=== PATIENT | male | born 1960 | race African-American/Black ===

== ENCOUNTER 2020-05-02 19:40 | Emergency (ER) | payer MEDICARE, OTHER ==
[~2020-05-02] VITALS: Ht 172.7 cm; Wt 91.6 kg
--- NOTE | 2020-05-02 20:01 | NUR ---
XRAY AT BEDSIDE
--- NOTE | 2020-05-02 20:20 | NUR ---
AUTO CLUB TRAVEL COUNSELOR AT BEDSIDE FOR BLOOD DRAW
[2020-05-02 20:39] LABS: BASOPHILS # (AUTO) 0.1 /CMM (0.0-0.2); BASOPHILS % (AUTO) 0.9 % (0.0-2.0); EOSINOPHILS % (AUTO) 3.1 % (0.0-6.0); HEMATOCRIT 44 % (39-51); HEMOGLOBIN 14.2 g/dL (13.5-17.5); LYMPHOCYTES % (AUTO) 13.8 % (20.0-44.0); MEAN CORPUSCULAR HGB CONC 32 g/dl (31.0-36.0); MEAN CORPUSCULAR VOLUME 94 fL (80-96); MONOCYTES # (AUTO) 0.8 /CMM (0.1-1.30); MONOCYTES % (AUTO) 10.6 % (2.0-12.0); NEUTROPHILS # (AUTO) 5.1 /CMM (1.8-8.9); NEUTROPHILS % (AUTO) 71.6 % (43.0-81.0); PLATELET COUNT (AUTO) 197 /CMM (150-450); RED BLOOD CELL COUNT(AUTO) 4.68 MIL/uL (4.5-6.0); WHITE BLOOD COUNT (AUTO) 7.2 K/uL (4.3-11.0)
[2020-05-02 20:49] LABS: CALCIUM, SERUM 8.2 mg/dL (8.5-10.1); CARBON DIOXIDE 28 mmol/L (21-32); CHLORIDE 100 mmol/L (98-107); GLUCOSE 138 mg/dL (74-106); POTASSIUM 5.3 mmol/L (3.5-5.1); SODIUM SERUM 139 mmol/L (136-145); UREA NITROGEN, BLOOD 43 mg/dL (7-18)
[2020-05-02 20:52] LABS: CREATININE 10.2 mg/dL (0.6-1.3)
--- NOTE | 2020-05-02 20:53 | NUR ---
CRE 10.2, AWARE
[2020-05-02 21:41] VITALS: BP 128/76
== END 2020-05-02 21:41 | disposition home or self-care (01) ==
LOC: ER 19:42
DX: R55 Syncope and collapse (principal); N18.6 End stage renal disease; E87.5 Hyperkalemia; Z99.2 Dependence on renal dialysis
CPT/HCPCS: 36415; 71045-TC; 80048-TC; 84484-TC; 85025-TC; 85730-TC

== ENCOUNTER 2020-09-14 12:59 | Inpatient (IN) | payer MEDICARE, OTHER ==
[~2020-09-14] VITALS: Ht 172.7 cm; Wt 91.8 kg
[2020-09-14] MEDS ORDERED: MORPHINE SULFATE INJ 4 MG/ML DISP.SYRIN ONE (14:28)
[2020-09-14] MEDS ORDERED: ONDANSETRON HCL/PF 4 MG/2 ML VIAL ONE (14:28)
[2020-09-14 14:56] LABS: BASOPHILS # (AUTO) 0.2 /CMM (0.0-0.2); BASOPHILS % (AUTO) 2.4 % (0.0-2.0); EOSINOPHILS % (AUTO) 5.2 % (0.0-6.0); HEMATOCRIT 37 % (39-51); HEMOGLOBIN 11.8 g/dL (13.5-17.5); LYMPHOCYTES # (AUTO) 1.7 /CMM (0.8-4.8); LYMPHOCYTES % (AUTO) 16.7 % (20.0-44.0); MEAN CORPUSCULAR HGB CONC 32 g/dl (31.0-36.0); MEAN CORPUSCULAR VOLUME 96 fL (80-96); MONOCYTES # (AUTO) 0.9 /CMM (0.1-1.30); MONOCYTES % (AUTO) 9.3 % (2.0-12.0); NEUTROPHILS # (AUTO) 6.8 /CMM (1.8-8.9); NEUTROPHILS % (AUTO) 66.4 % (43.0-81.0); PLATELET COUNT (AUTO) 206 /CMM (150-450); RED BLOOD CELL COUNT(AUTO) 3.88 MIL/uL (4.5-6.0); WHITE BLOOD COUNT (AUTO) 10.2 K/uL (4.3-11.0)
[2020-09-14] MEDS ORDERED: CARV25TA2 PO (14:57)
[2020-09-14] MEDS ORDERED: FURO-145 PO (14:57)
[2020-09-14] MEDS ORDERED: SEVE800T8 PO (14:57)
[2020-09-14] MEDS ORDERED: CALC300T4 PO (14:57)
[2020-09-14] MEDS ORDERED: ASPI-1169 PO (14:57)
[2020-09-14] MEDS ORDERED: ONDANSETRON HCL/PF 4 MG/2 ML VIAL IVP ONE (15:00)
[2020-09-14] MEDS ORDERED: MORPHINE SULFATE INJ 10 MG/ML DISP.SYRIN IM ONE (15:00)
[2020-09-14] MEDS ORDERED: MORPHINE SULFATE INJ 2 MG/ML DISP.SYRIN IV ONE (15:00)
[2020-09-14] MEDS ORDERED: ONDANSETRON HCL/PF 4 MG/2 ML VIAL IM ONE (15:00)
--- NOTE | 2020-09-14 15:00 | NUR ---
pt sent to ct chest xray done
[2020-09-14 15:06] LABS: ALBUMIN 3.4 g/dL (3.4-5.0); BILIRUBIN,DIRECT 0.1 mg/dL (0.0-0.2); BILIRUBIN,TOTAL 0.5 mg/dL (0.2-1.0); CALCIUM, SERUM 7.1 mg/dL (8.5-10.1); TOTAL PROTEIN, SERUM 7.6 g/dL (6.4-8.2)
[2020-09-14 15:10] LABS: CREATININE 14.4 mg/dL (0.6-1.3); POTASSIUM 6.3 mmol/L (3.5-5.1)
--- NOTE | 2020-09-14 15:15 | NUR ---
iv started left wrist 22g labs drawn sent to lab AWAITING EVALUATION BY ER PROVIDER. pt stated feeling better
--- NOTE | 2020-09-14 15:15 | NUR ---
pt reac'd to er via ems c/o rt side abd pain 10/ crying rt arm doyleuta need his dialysis today iv started left wrist 22g
--- NOTE | 2020-09-14 15:19 | NUR ---
meds given left detoid im and rt thighAWAITING EVALUATION BY ER PROVIDER.
[2020-09-14] MEDS ORDERED: ALBUTEROL FS 2.5 MG/3 ML VIAL.NEB NEB ONE (15:30)
[2020-09-14] MEDS ORDERED: SODIUM POLYSTYRENE SULFONATE 15 G/60 ML BOTTLE PO ONE (15:30)
[2020-09-14] MEDS ORDERED: SODIUM BICARBONATE SYR 50 MEQ/50 ML DISP.SYRIN IV ONE (15:30)
[2020-09-14] MEDS ORDERED: SODIUM BICARBONATE SYR 50 MEQ/50 ML DISP.SYRIN ONE (15:31)
[2020-09-14] MEDS ORDERED: SODIUM POLYSTYRENE SULFONATE 15 G/60 ML BOTTLE ONE (15:31)
--- NOTE | 2020-09-14 18:50 | NUR ---
rt calledd for bt and covid 19 negative
--- NOTE | 2020-09-14 19:45 | NUR ---
RT CALLED FOR BREATHING TREATMENT.
[2020-09-14] MEDS ORDERED: ZOLPIDEM TARTRATE 5 MG TABLET PO PRN (20:00)
[2020-09-14] MEDS ORDERED: ONDANSETRON HCL/PF 4 MG/2 ML VIAL IVP PRN (20:00)
[2020-09-14] MEDS ORDERED: ACETAMINOPHEN 325 MG TABLET PO PRN (20:00)
[2020-09-14] MEDS ORDERED: Z GUARD REMEDY 2 OZ OINT TP PRN (20:00)
--- NOTE | 2020-09-14 20:44 | NUR ---
ORDERS ARE NOW ACTIVE, CALLED NURSING SUPERVISOR [employer] WITH ORDERS FOR MEDICATIONS THAT ARE NOT AVAILABLE IN THE EMERGENCY DEPARTMENT.
[2020-09-14] MEDS: SEVELAMER CARBONATE 800 MG POWD.PACK GT SCH (21:23)
[2020-09-14] MEDS ORDERED: CARVEDILOL 12.5 MG TABLET ONE (21:23)
[2020-09-14] MEDS ORDERED: HEPARIN SODIUM, PORCINE 5000 UNITS/1 ML VIAL ONE (21:23)
[2020-09-14] MEDS: FUROSEMIDE 20 MG TABLET PO SCH (21:23)
[2020-09-14] MEDS: CARVEDILOL 6.25 MG TABLET PO SCH (21:23)
[2020-09-14] MEDS ORDERED: FUROSEMIDE 20 MG/2 ML VIAL ONE (21:51)
[2020-09-14] MEDS ORDERED: SEVELAMER CARBONATE 800 MG POWD.PACK ONE (21:52)
[2020-09-14] MEDS: HEPARIN SODIUM, PORCINE 5000 UNITS/1 ML VIAL SQ SCH (21:54)
[2020-09-14] MEDS ORDERED: FUROSEMIDE 20 MG TABLET ONE (22:01)
[2020-09-14 22:44] LABS: CALCIUM, SERUM 6.5 mg/dL (8.5-10.1); POTASSIUM 5.9 mmol/L (3.5-5.1)
[2020-09-14 22:45] LABS: CREATININE 14.8 mg/dL (0.6-1.3)
[2020-09-15] MEDS ORDERED: FUROSEMIDE 40 MG/4 ML VIAL ONE (02:45)
[2020-09-15] MEDS ORDERED: FUROSEMIDE 20 MG/2 ML VIAL IV SCH ×2 (03:00)
[2020-09-15] MEDS ORDERED: ONDANSETRON HCL/PF 4 MG/2 ML VIAL ONE (03:04)
[2020-09-15] MEDS ORDERED: MORPHINE SULFATE INJ 2 MG/ML DISP.SYRIN ONE (03:05)
[2020-09-15] MEDS: MORPHINE SULFATE INJ 2 MG/ML DISP.SYRIN IV PRN ×2 (03:07→08:19)
[2020-09-15] MEDS ORDERED: NITROGLYCERIN 0.4 MG/TAB BOTTLE ONE (03:47)
--- NOTE | 2020-09-15 03:50 | NUR ---
MOISE BALES DATA COORDINATOR NOTIFIED OF PATIENT'S 11/27 LEFT SIDED CHEST PAIN. DATA COORDINATOR ORDERED FOR NITRO 0.4 SUBLINGUAL 1 TAB. WILL MEDICATE ORDER
--- NOTE | 2020-09-15 03:54 | NUR ---
PATIENT MEDICATED ORDERED.
--- NOTE | 2020-09-15 06:04 | NUR ---
REPORT GIVEN TO RIVKA LOPEZ FOR CONTINUITY OF CARE.
--- NOTE | 2020-09-15 07:01 | NUR ---
PATIENT UP TO ASSIGNED ROOM FOR CONTINUITY OF CARE
[2020-09-15 08:00] VITALS: BP 166/96
[2020-09-15] MEDS: SEVELAMER CARBONATE 800 MG POWD.PACK GT SCH ×3 (08:15→18:18)
[2020-09-15] MEDS: FUROSEMIDE 20 MG TABLET PO SCH ×2 (08:16→18:18)
[2020-09-15] MEDS: CARVEDILOL 6.25 MG TABLET PO SCH ×2 (08:17→18:18)
[2020-09-15] MEDS: CALCIUM CARBONATE 500 MG TAB.CHEW PO SCH (08:17)
[2020-09-15] MEDS: ASPIRIN 81 MG TAB.CHEW PO SCH (08:17)
[2020-09-15] MEDS: HEPARIN SODIUM, PORCINE 5000 UNITS/1 ML VIAL SQ SCH ×2 (08:18→20:28)
[2020-09-15 08:21] LABS: BASOPHILS # (AUTO) 0.1 /CMM (0.0-0.2); BASOPHILS % (AUTO) 0.8 % (0.0-2.0); EOSINOPHILS % (AUTO) 4.5 % (0.0-6.0); HEMATOCRIT 33 % (39-51); HEMOGLOBIN 10.8 g/dL (13.5-17.5); LYMPHOCYTES # (AUTO) 1.3 /CMM (0.8-4.8); LYMPHOCYTES % (AUTO) 12.9 % (20.0-44.0); MEAN CORPUSCULAR HGB CONC 33 g/dl (31.0-36.0); MEAN CORPUSCULAR VOLUME 93 fL (80-96); MONOCYTES # (AUTO) 1.2 /CMM (0.1-1.30); NEUTROPHILS # (AUTO) 6.9 /CMM (1.8-8.9); NEUTROPHILS % (AUTO) 69.8 % (43.0-81.0); PLATELET COUNT (AUTO) 195 /CMM (150-450); RED BLOOD CELL COUNT(AUTO) 3.55 MIL/uL (4.5-6.0); WHITE BLOOD COUNT (AUTO) 9.8 K/uL (4.3-11.0)
[2020-09-15 11:23] LABS: CALCIUM, SERUM 6.8 mg/dL (8.5-10.1); MAGNESIUM 2.8 mg/dL (1.8-2.4); PHOSPHORUS 6.3 mg/dL (2.5-4.9)
[2020-09-15 11:24] LABS: CREATININE 15.7 mg/dL (0.6-1.3)
--- NOTE | 2020-09-15 11:30 | NUR ---
RN NOTES HD FINISH WITH [employer] TEST TECHNICIAN AT BEDSIDE, 3 LITERS OUTPUT, WILL CONTINUE TO MONITOR PATIENT.
[2020-09-15] MEDS ORDERED: NITROGLYCERIN 0.4 MG/TAB BOTTLE SL PRN (15:00)
[2020-09-15 16:00] VITALS: BP 148/85
--- NOTE | 2020-09-15 19:45 | NUR ---
CARE TRANSPORT NURSE OPENING NOTES RECEIVED PATIENT IN BED ALERT AND ORIENTED X 3. VERBALLY RESPONSIVE AND ABLE TO FOLLOW DIRECTIONS. BREATHING REGULAR AND UNLABORED ON OXYGEN AT 2L/MIN VIA NASAL CANNULA. LEFT FOREARM G20 IV LINE INTACT AND PATENT, FLUSHING WELL. MAINTAINED ON CARDIAC MONITORING. RIGHT AV FISTULA POSITIVE FOR BRUIT AND THRILL, NO ACTIVE BLEEDING NOTED. DENIES PAIN/DISCOMFORT AT THIS TIME. BED LOW AND LOCKED ON SEMI FOWLERS POSITION. CALL LIGHT IN REACH. WILL CONTINUE TO MONITOR.
--- NOTE | 2020-09-15 19:45 | NUR ---
RN CLOSING NOTES PATIENT IN BED RESTING COMFORTABLY, MET ALL OF PATIENT'S NEEDS. ALERT AND ORIENTED X 3. ON NASAL CANNULA, 2 LITERS WITH NO RESPIRATORY DISTRESS PRESENT WITH EVEN NON-LABORED BREATHING. PATIENT ON PROJ MGR, SINUS RHYTHM. IV ACCESS INTACT AND PATENT. PATIENT PRESENTS WITH NO SIGNS OF PAIN OR DISCOMFORT. SAFETY PRECAUTIONS IMPLEMENTED WITH BED LOCKED, BILATERAL SIDE RAILS UP, AND CALL LIGHT WITH IN EASY REACH. WILL ENDORSE PLAN OF CARE TO UPCOMING RN.
[2020-09-15 20:00] VITALS: BP 171/89
[2020-09-15 21:00] VITALS: BP 146/78
[2020-09-15] MEDS: CLONIDINE HCL 0.1 MG TABLET PO PRN (21:13)
[2020-09-16] VITALS: BP 157/92
[2020-09-16] MEDS: HYDROCODONE/APAP 5/325MG TABLET PO PRN ×2 (00:35→09:04)
--- NOTE | 2020-09-16 06:55 | NUR ---
PSYCH SPECIALIST CLOSING NOTES PATIENT IN BED, ALERT AND ORIENTED X 4. AFEBRILE WITH NO S/S OF DISTRESS OBSERVED. WILL ENDORSE TO MORNING SHIFT FOR CONTINUITY OF CARE.
--- NOTE | 2020-09-16 07:31 | NUR ---
AUDIO VIDEO TECHNICIAN OPENING NOTES PATIENT ASLEEP IN BED. A/OX3 ABLE TO MAKE NEEDS KNOWN. EXTERNAL MONITOR READS HR IS NSR WITH PVC AT 74. ON O2 2LPM VIA N/C, TOLERATING WELL WITH NO ACUTE RESPIRATORY DISTRESS. IV ON LFA G# 20, PATENT AND INTACT. R AV FISTULA INTACT. SAFETY MEASURES TAKEN; BED IN LOWEST POSITION WITH SIDE RAILS UPX2, BED LOCKED, CALL LIGHT WITHIN EASY REACH. WILL CONTINUE TO MONITOR. Addendum: 09/16/20 at 0740 by YURI GIANG RN AUDIO VIDEO TECHNICIAN OPENING NOTES PATIENT ASLEEP IN BED. A/OX3 ABLE TO MAKE NEEDS KNOWN. EXTERNAL MONITOR READS HR IS NSR WITH PVC AT 74. ON O2 2LPM VIA N/C, TOLERATING WELL WITH NO ACUTE RESPIRATORY DISTRESS. IV ON LFA G# 20, PATENT AND INTACT. R AV FISTULA INTACT; POSITIVE BRUIT AND THRILLS, DRESSING CLEAN, DRY, AND INTACT. DENIES PAIN OR DISCOMFORT AT THIS TIME. SAFETY MEASURES TAKEN; BED IN LOWEST POSITION WITH SIDE RAILS UPX2, BED LOCKED, CALL LIGHT WITHIN EASY REACH. WILL CONTINUE TO MONITOR.
[2020-09-16 08:00] VITALS: BP 134/75
[2020-09-16] MEDS: SEVELAMER CARBONATE 800 MG POWD.PACK GT SCH ×3 (08:31→17:20)
[2020-09-16] MEDS: CALCIUM CARBONATE 500 MG TAB.CHEW PO SCH (08:32)
[2020-09-16] MEDS: FUROSEMIDE 20 MG TABLET PO SCH ×2 (08:32→17:19)
[2020-09-16] MEDS: ASPIRIN 81 MG TAB.CHEW PO SCH (08:32)
[2020-09-16] MEDS: CARVEDILOL 6.25 MG TABLET PO SCH ×2 (08:33→17:19)
[2020-09-16] MEDS: HEPARIN SODIUM, PORCINE 5000 UNITS/1 ML VIAL SQ SCH ×2 (08:35→22:50)
--- NOTE | 2020-09-16 09:27 | NUR ---
SCRATCHER TENDER NOTES PATIENT C/O PAIN ON RIGHT UPPER AND LOWER ABDOMEN WITH SCALE 7/10. ADMINISTERED PRN NORCO 5-325MG AT 0905. WILL CONTINUE TO MONITOR AND REASSESS PATIENT.
[2020-09-16 12:00] VITALS: BP 129/77
[2020-09-16 15:30] VITALS: BP 156/92
--- NOTE | 2020-09-16 15:46 | NUR ---
RN NOTES PATIENT WALKED TO THE TOILET AND VERBALIZED THAT HE SUDDENLY FELT WEAK AND DIZZY. ASSISTED PATIENT TO SIT ON THE CHAIR, PLACED ON 02 VIA N/C @ 5LPM. V/S CHECKED: BP 156/92, HR 69, R 18, T 97.8f, B/S 88 AND SP02 99%. AFTER FEW MINUTES, PT VERBALIZED THAT HE'S FELT FINE AND ASSISTED BACK TO BED. PT AWAKE, A/O X4 AND RESTING COMFORTABLE IN BED AT MODERATE HIGH BACKREST POSITION. HE STATED THAT HE'S RIAN NOW. REEDUCATED PT NOT TO GET OUT OF BED W/O ASSISTANCE AND USE CALL LIGHT FOR ANY NEEDS AND ASSISTANCE. WILL CONTINUE TO MONITOR CLOSELY.
[2020-09-16 16:00] VITALS: BP 143/83
--- NOTE | 2020-09-16 18:49 | NUR ---
CAR BODY DESIGNER CLOSING NOTES PATIENT AWAKE IN BED. A/OX 4 ABLE TO MAKE NEEDS KNOWN. EXTERNAL MONITOR READS HR IS NSR WITH PVC AT 70'S. ON O2 2LPM VIA N/C, TOLERATING WELL WITH NO ACUTE RESPIRATORY DISTRESS. IV ON LFA G# 20, PATENT AND INTACT. R AV FISTULA INTACT, POSITIVE BRUIT AND THRILLS. SAFETY MEASURES IN PLACE; BED IN LOWEST POSITION WITH SIDE RAILS UPX2, BED LOCKED, CALL LIGHT WITHIN EASY REACH. WILL ENDORSE PLAN OF CARE TO ONCOMING NURSE.
--- NOTE | 2020-09-16 20:29 | NUR ---
MS/TELE/RN PATIENT IS AWAKE, ALERT, ORIENTED, COMFORTABLE, NO C/O PAIN, NO DISTRESS NOTED, CALL LIGHT IN REACH, HD IS IN PROGRESS, WILL MONITOR.
--- NOTE | 2020-09-16 20:35 | NUR ---
MS/TELE/RN HD IS FINISHED, 1,000 MLS OUTPUT, PATIENT IS STABLE, WILL CONTINUE TO MONITOR.
[2020-09-16 21:27] VITALS: BP 158/87
[2020-09-17] MEDS: CLONIDINE HCL 0.1 MG TABLET PO PRN (00:59)
--- NOTE | 2020-09-17 01:10 | NUR ---
MS/TELE/RN BP 175/92, CLONIDINE 0.1 MG PO WAS GIVEN ORDERED. WILL MONITOR.
[2020-09-17 01:29] VITALS: BP 175/92
[2020-09-17 05:10] VITALS: BP 127/66
--- NOTE | 2020-09-17 06:07 | NUR ---
MS/TELE/RN BP AT 0400 127/66, CURRENTLY, PATIENT IS AWAKE, ALERT, WATCHING TV, NO DISTRESS NOTED, CALL LIGHT IN REACH, ALL NEEDS ATTENDED AT THIS TIME, WILL CONTINUE TO MONITOR.
[2020-09-17 06:22] LABS: BASOPHILS # (AUTO) 0.1 /CMM (0.0-0.2); BASOPHILS % (AUTO) 1.2 % (0.0-2.0); EOSINOPHILS % (AUTO) 3.5 % (0.0-6.0); HEMATOCRIT 30 % (39-51); LYMPHOCYTES # (AUTO) 1.3 /CMM (0.8-4.8); LYMPHOCYTES % (AUTO) 14.8 % (20.0-44.0); MEAN CORPUSCULAR HGB CONC 33 g/dl (31.0-36.0); MEAN CORPUSCULAR VOLUME 94 fL (80-96); MONOCYTES # (AUTO) 1.1 /CMM (0.1-1.30); MONOCYTES % (AUTO) 13.4 % (2.0-12.0); NEUTROPHILS # (AUTO) 5.7 /CMM (1.8-8.9); NEUTROPHILS % (AUTO) 67.1 % (43.0-81.0); PLATELET COUNT (AUTO) 169 /CMM (150-450); RED BLOOD CELL COUNT(AUTO) 3.18 MIL/uL (4.5-6.0); WHITE BLOOD COUNT (AUTO) 8.5 K/uL (4.3-11.0)
[2020-09-17 06:37] LABS: CALCIUM, SERUM 7.2 mg/dL (8.5-10.1); MAGNESIUM 2.4 mg/dL (1.8-2.4); PHOSPHORUS 7.5 mg/dL (2.5-4.9)
[2020-09-17 07:26] LABS: CREATININE 14.8 mg/dL (0.6-1.3)
--- NOTE | 2020-09-17 07:47 | NUR ---
FINANCIAL PLANNING ANALYST OPENING NOTES PATIENT SLEEPING IN BED. A/OX 4 ABLE TO MAKE NEEDS KNOWN. EXTERNAL MONITOR READS HR IS NSR WITH PAC, HR AT 82. ON O2 2LPM VIA N/C, TOLERATING WELL WITH NO ACUTE RESPIRATORY DISTRESS. IV ON LFA G# 20, PATENT AND INTACT. R AV FISTULA INTACT, POSITIVE BRUIT AND THRILLS. SAFETY MEASURES IN PLACE; BED IN LOWEST POSITION WITH SIDE RAILS UPX2, BED LOCKED, CALL LIGHT WITHIN EASY REACH. WILL CONTINUE TO MONITOR.
[2020-09-17] MEDS: SEVELAMER CARBONATE 800 MG POWD.PACK GT SCH ×3 (08:24→17:04)
[2020-09-17] MEDS: HYDROCODONE/APAP 5/325MG TABLET PO PRN (09:05)
[2020-09-17] MEDS: HEPARIN SODIUM, PORCINE 5000 UNITS/1 ML VIAL SQ SCH (09:06)
[2020-09-17] MEDS: CALCIUM CARBONATE 500 MG TAB.CHEW PO SCH (09:07)
[2020-09-17] MEDS: ASPIRIN 81 MG TAB.CHEW PO SCH (09:07)
[2020-09-17] MEDS: FUROSEMIDE 20 MG TABLET PO SCH ×2 (09:07→17:01)
[2020-09-17] MEDS: CARVEDILOL 6.25 MG TABLET PO SCH ×2 (09:08→17:01)
--- NOTE | 2020-09-17 09:20 | NUR ---
CLOTH BOOKER NOTES PATIENT C/O PAIN ON RIGHT UPPER AND LOWER ABDOMEN WITH SCALE 7/10. ADMINISTERED PRN NORCO 5-325MG AT 0910. WILL CONTINUE TO MONITOR AND REASSESS PATIENT. Addendum: 09/17/20 at 0938 by YURI GIANG RN CLOTH BOOKER NOTES PATIENT C/O PAIN ON RIGHT UPPER AND LOWER ABDOMEN WITH SCALE 5/10. ADMINISTERED PRN NORCO 5-325MG AT 0910. WILL CONTINUE TO MONITOR AND REASSESS PATIENT.
--- NOTE | 2020-09-17 14:52 | NUR ---
RN NOTES HEMODIALYSIS STARTED BY HD NURSE VIA RIGHT UPPER ARM AV FISTULA. PRE -HD V/S: 117/74, HR 74, R 19 AND T 98.0F. WILL CONTINUE TO MONITOR.
[2020-09-17 17:01] VITALS: BP 173/92
--- NOTE | 2020-09-17 18:18 | NUR ---
DEPUTY SHERIFF COURT SERVICES NOTES PT MEDICALLY STABLE A/O X4 ABLE TO MAKE NEEDS KNOWN. ON ROOM AIR; TOLERATING WELL WITH NO SOB NOTED. NO C/O CARDIAC DISTRESS VOICED AT THIS TIME. IV ON LFA DISCONTINUED WITH NO ACTIVE BLEEDING NOTED. R AV FISTULA INTACT, POSITIVE BRUIT AND THRILLS, DRESSING C/D/I WITH NO ACTIVE BLEEDING NOTED. S/P HEMODIALYSIS TODAY WITH 1500ML OUTPUT; TOLERATED PROCEDURE WELL. ALL BELONGINGS ACCOUNTED AND SIGNED FOR. HEALTH TEACHINGS GIVEN TO PATIENT AND VERBALIZED UNDERSTANDING. NAME ARMBAND REMOVED. PATIENT LEFT UNIT 1809 VIA WHEELCHAIR AND ACCOMPANIED BY RN. AWAITING UBER BEING DISCHARGED VIA WALKING AND UBER.
== END 2020-09-17 18:08 | disposition home or self-care (01) | DRG 304 ==
LOC: ER 13:01 → TRANSITION 22:53 → TELE 09-15 05:37
PROVIDERS: ADMIT Nurse Practitioner Acute Care
PROC: 5A1D70Z Performance of Urinary Filtration, Intermittent, Less than 6 Hours Per Day (ICD-10-PCS; principal; 2020-09-15)
DX: I16.0 Hypertensive urgency (principal); N18.6 End stage renal disease; D68.59 Other primary thrombophilia; J98.11 Atelectasis; I12.0 Hypertensive chronic kidney disease with stage 5 chronic kidney disease or end stage renal disease; E87.5 Hyperkalemia; Z79.82 Long term (current) use of aspirin; Z99.2 Dependence on renal dialysis; Z79.899 Other long term (current) drug therapy; E66.9 Obesity, unspecified; Z68.30 Body mass index [BMI] 30.0-30.9, adult; K76.89 Other specified diseases of liver; K42.9 Umbilical hernia without obstruction or gangrene; K40.20 Bilateral inguinal hernia, without obstruction or gangrene, not specified as recurrent
CPT/HCPCS: 36415; 71045-TC; 80048-TC; 80061-TC; 80076-TC; 82962-TC; 83690-TC; 83735-TC; 84100-TC; 84484-TC; 85025-TC; 87081-TC; 90935-TC; 97112-TC; 97116-TC; 97530-TC; C9803; G0378; J1644; J1940; J2270; J2405; J3490

== ENCOUNTER → 2020-09-24 | Day surgery (SDC) | payer MEDICARE, OTHER ==
[~2020-09-24] VITALS: Ht 167.6 cm; Wt 90.7 kg
[~2020-09-24] MED LIST: ASPI-1169 PO; CALC300T4 PO; CARV25TA2 PO; FURO-145 PO; IOHEXOL-350 100 ML VIAL IV ONE; IV NS 0.9% 250 ML IV ONE; IV NS 0.9% 500 ML IV PRN; METOPROLOL TARTRATE INJ 5 MG/5 ML AMPUL ONE; NITROGLYCERIN 0.4 MG/TAB BOTTLE SL ONE; SEVE800T8 PO
[2020-09-24] MEDS: METOPROLOL TARTRATE INJ 5 MG/5 ML AMPUL IVP PRN ×3 (13:35→13:45)
[2020-09-24 13:45] VITALS: BP 150/75
== END | disposition home or self-care (01) ==
LOC: CARD 11:35 → EDSTATUS 11:42 → CARD 11:43
PROVIDERS: ATTEND Internal Medicine
DX: I25.10 Atherosclerotic heart disease of native coronary artery without angina pectoris (principal); I77.810 Thoracic aortic ectasia; J98.4 Other disorders of lung; K76.89 Other specified diseases of liver; M47.814 Spondylosis without myelopathy or radiculopathy, thoracic region
CPT/HCPCS: 75574; J3490 ×2; J7050; Q9967

== ENCOUNTER 2025-03-06 23:03 | Inpatient (IN) | payer MEDICARE, OTHER ==
[~2025-03-06] VITALS: Ht 172.7 cm; Wt 92.1 kg
[~2025-03-06 23:03] MED LIST changes: -ASPI-1169 PO; +ASPI-1420 PO; -CALC300T4 PO; +CLON0.1T PO; +DICL112S2 TP; +EVOL140P3 SQ; -FURO-145 PO; +FURO40TA5 PO; -IOHEXOL-350 100 ML VIAL IV ONE; -IV NS 0.9% 250 ML IV ONE; -IV NS 0.9% 500 ML IV PRN; +LACO100T2 PO; +LISI20TA30 PO; +LOSA100T31 PO; -METOPROLOL TARTRATE INJ 5 MG/5 ML AMPUL ONE; +NITR0.4T48 SL; -NITROGLYCERIN 0.4 MG/TAB BOTTLE SL ONE; -SEVE800T8 PO; +VERQUVO PO; +[UNRECOGNIZED DRUG - CODE] PO; +[UNRECOGNIZED DRUG - OTHER] PO
[2025-03-06] MEDS ORDERED: ACETAMINOPHEN ES 500 MG TABLET ONE (23:35)
[2025-03-06] MEDS: ACETAMINOPHEN ES 500 MG TABLET PO ONE (23:47)
[2025-03-06 23:54] LABS: CALCIUM, SERUM 7.6 mg/dL (8.5-10.1); INR 1.09 (0.91-1.10); PARTIAL THROMBOPLASTIN TIME 29.1 SEC (24.3-34.3); PROTHROMBIN TIME 11.5 SECS (9.2-11.1)
[2025-03-06 23:55] LABS: BASOPHILS # (AUTO) 0.1 K/uL (0.0-0.2); BASOPHILS % (AUTO) 1.5 % (0.0-2.0); CREATININE 10.1 mg/dL (0.6-1.3); EOSINOPHILS # (AUTO) 0.4 K/uL (0.0-0.7); EOSINOPHILS % (AUTO) 4.8 % (0.0-6.0); HEMATOCRIT 28 % (39-51); HEMOGLOBIN 8.6 g/dL (13.5-17.5); LYMPHOCYTES % (AUTO) 11.6 % (20.0-44.0); MEAN CORPUSCULAR HEMOGLOBIN 26 PG (26.0-33.0); MEAN CORPUSCULAR HGB CONC 31 g/dl (31.0-36.0); MEAN CORPUSCULAR VOLUME 84 fL (80-96); MONOCYTES # (AUTO) 1.1 K/uL (0.1-1.30); MONOCYTES % (AUTO) 12.8 % (2.0-12.0); NEUTROPHILS # (AUTO) 5.7 K/uL (1.8-8.9); NEUTROPHILS % (AUTO) 69.3 % (43.0-81.0); PLATELET COUNT (AUTO) 226 K/uL (150-450); RED BLOOD CELL COUNT(AUTO) 3.32 MIL/uL (4.5-6.0); RED CELL DISTRIBUTION WIDTH 21.2 % (11.5-15.0); WHITE BLOOD COUNT (AUTO) 8.3 K/uL (4.3-11.0)
[2025-03-06 23:58] LABS: ALBUMIN 3.1 g/dL (3.4-5.0); BILIRUBIN,DIRECT 0.2 mg/dL (0.0-0.2); BILIRUBIN,TOTAL 0.6 mg/dL (0.2-1.0); TOTAL PROTEIN, SERUM 7.7 g/dL (6.4-8.2)
[2025-03-07] MEDS ORDERED: MAG HYDROX/AL HYDROX/SIMETH 30 ML UDC PO PRN (03:00)
[2025-03-07] MEDS ORDERED: MAGNESIUM HYDROXIDE 30 ML UDC PO PRN (03:00)
[2025-03-07 04:00] VITALS: BP 120/70; TEMP 97.5; O2SAT 97
[2025-03-07] MEDS: ONDANSETRON HCL/PF 4 MG/2 ML VIAL IVP PRN (04:32)
[2025-03-07 06:42] LABS: CALCIUM, SERUM 6.7 mg/dL (8.5-10.1); MAGNESIUM 2.8 mg/dL (1.8-2.4); PHOSPHORUS 5.3 mg/dL (2.5-4.9)
[2025-03-07 06:52] LABS: THYROID STIMULATING HORMONE 1.99 uIU/mL (0.358-3.74)
[2025-03-07 06:53] LABS: BASOPHILS # (AUTO) 0.1 K/uL (0.0-0.2); BASOPHILS % (AUTO) 1.1 % (0.0-2.0); EOSINOPHILS # (AUTO) 0.5 K/uL (0.0-0.7); EOSINOPHILS % (AUTO) 6.8 % (0.0-6.0); HEMATOCRIT 28 % (39-51); HEMOGLOBIN 8.9 g/dL (13.5-17.5); LYMPHOCYTES # (AUTO) 1.2 K/uL (0.8-4.8); LYMPHOCYTES % (AUTO) 17.4 % (20.0-44.0); MEAN CORPUSCULAR HEMOGLOBIN 27 PG (26.0-33.0); MEAN CORPUSCULAR HGB CONC 32 g/dl (31.0-36.0); MEAN CORPUSCULAR VOLUME 84 fL (80-96); MONOCYTES # (AUTO) 1.1 K/uL (0.1-1.30); MONOCYTES % (AUTO) 15.3 % (2.0-12.0); NEUTROPHILS # (AUTO) 4.2 K/uL (1.8-8.9); NEUTROPHILS % (AUTO) 59.4 % (43.0-81.0); PLATELET COUNT (AUTO) 213 K/uL (150-450); RED BLOOD CELL COUNT(AUTO) 3.35 MIL/uL (4.5-6.0); RED CELL DISTRIBUTION WIDTH 20.9 % (11.5-15.0)
[2025-03-07 06:56] LABS: CREATININE 10.9 mg/dL (0.6-1.3)
[2025-03-07 08:00] VITALS: BP 114/67; TEMP 97; O2SAT 95
[2025-03-07] MEDS: PANTOPRAZOLE 40 MG TABLET.DR PO SCH (08:01)
[2025-03-07 10:28] LABS: THYROID STIMULATING HORMONE 2.01 uIU/mL (0.358-3.74)
[2025-03-07 12:00] VITALS: BP 88/62; TEMP 97.3; O2SAT 96
[2025-03-07 16:00] VITALS: BP 107/63; TEMP 97.3; O2SAT 95
[2025-03-07 20:00] VITALS: BP 120/74; TEMP 97.7; O2SAT 97
[2025-03-08] VITALS: BP 100/60; TEMP 98.4; O2SAT 97
[2025-03-08 04:00] VITALS: BP 127/69; TEMP 98.6; O2SAT 97
[2025-03-08 08:00] VITALS: BP 119/62; TEMP 98.2; O2SAT 97
[2025-03-08 08:10] LABS: FOLIC ACID 3.7 ng/mL (>3.0)
[2025-03-08] MEDS: MECLIZINE HCL 12.5 MG TABLET PO PRN (09:16)
[2025-03-08 12:00] VITALS: BP 124/73; TEMP 97.7; O2SAT 97
[2025-03-08] MEDS: SEVELAMER CARBONATE 800 MG TABLET PO SCH (12:23)
[2025-03-08 16:00] VITALS: BP 127/81; TEMP 97.9; O2SAT 97
[2025-03-08] MEDS: LACOSAMIDE 50 MG TABLET PO SCH (17:24)
[2025-03-08 20:00] VITALS: BP 120/73; TEMP 98.4; O2SAT 97
[2025-03-09] VITALS: BP 144/78; TEMP 97.9; O2SAT 97
[2025-03-09] MEDS: ACETAMINOPHEN 325 MG TABLET PO PRN (01:29)
[2025-03-09 04:00] VITALS: BP 112/72; TEMP 98.1; O2SAT 97
[2025-03-09 08:00] VITALS: BP 121/68; TEMP 97.7; O2SAT 98
[2025-03-09 12:00] VITALS: BP 115/71; TEMP 97.3; O2SAT 99
[2025-03-09 16:00] VITALS: BP 149/95; TEMP 98.1; O2SAT 97
[2025-03-09] MEDS ORDERED: ALTEPLASE CATHFLO 2 MG/VIAL XX ONE (19:00)
[2025-03-09 22:11] VITALS: BP 153/81; TEMP 99.1; O2SAT 100
[2025-03-10] VITALS (8 sets, daily range): BP systolic 124–153; BP diastolic 69–87; TEMP 97.9–98.4; O2SAT 96–98
[2025-03-10 08:40] LABS: BASOPHILS # (AUTO) 0.1 K/uL (0.0-0.2); BASOPHILS % (AUTO) 1.2 % (0.0-2.0); EOSINOPHILS # (AUTO) 0.6 K/uL (0.0-0.7); EOSINOPHILS % (AUTO) 7.2 % (0.0-6.0); HEMATOCRIT 27 % (39-51); HEMOGLOBIN 8.6 g/dL (13.5-17.5); LYMPHOCYTES # (AUTO) 1.1 K/uL (0.8-4.8); LYMPHOCYTES % (AUTO) 13.7 % (20.0-44.0); MEAN CORPUSCULAR HEMOGLOBIN 27 PG (26.0-33.0); MEAN CORPUSCULAR HGB CONC 32 g/dl (31.0-36.0); MEAN CORPUSCULAR VOLUME 84 fL (80-96); MONOCYTES # (AUTO) 0.9 K/uL (0.1-1.30); NEUTROPHILS # (AUTO) 5.2 K/uL (1.8-8.9); NEUTROPHILS % (AUTO) 65.9 % (43.0-81.0); PLATELET COUNT (AUTO) 183 K/uL (150-450); RED BLOOD CELL COUNT(AUTO) 3.19 MIL/uL (4.5-6.0); WHITE BLOOD COUNT (AUTO) 7.9 K/uL (4.3-11.0)
[2025-03-10 08:43] LABS: ALBUMIN 2.8 g/dL (3.4-5.0); BILIRUBIN,TOTAL 0.5 mg/dL (0.2-1.0); CALCIUM, SERUM 6.8 mg/dL (8.5-10.1); MAGNESIUM 2.5 mg/dL (1.8-2.4); PHOSPHORUS 5.5 mg/dL (2.5-4.9); POTASSIUM 5.3 mmol/L (3.5-5.1); TOTAL PROTEIN, SERUM 7.2 g/dL (6.4-8.2)
[2025-03-10 09:24] LABS: CREATININE 13.7 mg/dL (0.6-1.3)
[2025-03-10] MEDS ORDERED: SCOP1PAT11 TD (11:22)
[2025-03-11 20:09] LABS: VITAMIN B1 THIAMINE,WB 91.2 nmol/L (66.5-200.0)
== END 2025-03-10 18:17 | disposition home health service (06) | DRG 149 ==
LOC: ER 23:06 → TELE1 03-07 03:00
PROVIDERS: ADMIT Internal Medicine; ATTEND Internal Medicine
PROC: 5A1D70Z Performance of Urinary Filtration, Intermittent, Less than 6 Hours Per Day (ICD-10-PCS; principal; 2025-03-09)
DX: H81.13 Benign paroxysmal vertigo, bilateral (principal); N18.6 End stage renal disease; I62.03 Nontraumatic chronic subdural hemorrhage; I12.0 Hypertensive chronic kidney disease with stage 5 chronic kidney disease or end stage renal disease; Z99.2 Dependence on renal dialysis; D64.9 Anemia, unspecified; E66.9 Obesity, unspecified; E78.5 Hyperlipidemia, unspecified; I25.10 Atherosclerotic heart disease of native coronary artery without angina pectoris; Z88.0 Allergy status to penicillin; R53.1 Weakness; G40.909 Epilepsy, unspecified, not intractable, without status epilepticus; Z91.018 Allergy to other foods; Z95.810 Presence of automatic (implantable) cardiac defibrillator; Z68.30 Body mass index [BMI] 30.0-30.9, adult; I95.9 Hypotension, unspecified
CPT/HCPCS: 36415; 70450-TC; 71045-TC; 80048-TC; 80053-TC; 80076-TC; 82607-TC; 82962-TC; 83690-TC; 83735-TC; 83921; 84100-TC; 84425; 84443-TC; 84484-TC; 85025-TC; 85730-TC; 87040-TC; 90935-TC; 93307-TC; 93880-TC; 97110-TC; 97116-TC; 97530-TC; A4223; A6403; G0378; J2405; J2997; J7030; J8597